=== PATIENT | female | born 1990 | race Hispanic/Latino ===

== ENCOUNTER 2021-08-29 18:05 | Day surgery (SDC) | payer MEDICAID ==
[2021-08-29] MEDS ORDERED: hydrALAZINE 20 MG/ML VIAL SLOW IVP PRN (18:37)
[2021-08-29] MEDS ORDERED: Betamet Acet/Betamet Na Ph 30 MG/5 ML VIAL IM SCH (18:45)
== END 2021-08-29 20:29 | disposition home or self-care (01) ==
LOC: CSHLD/OP 18:05
PROVIDERS: ATTEND Family Medicine
DX: Z29.8 Encounter for other specified prophylactic measures (principal); O36.5930 Maternal care for other known or suspected poor fetal growth, third trimester, not applicable or unspecified; Z3A.33 33 weeks gestation of pregnancy
CPT/HCPCS: 96372; 99281; J0702

== ENCOUNTER 2021-08-30 19:29 | Day surgery (SDC) | payer MEDICAID, SELFPAY ==
[2021-08-30] MEDS ORDERED: hydrALAZINE 20 MG/ML VIAL SLOW IVP PRN (19:36)
[2021-08-30] MEDS ORDERED: Betamet Acet/Betamet Na Ph 30 MG/5 ML VIAL ONE (19:44)
[2021-08-30] MEDS ORDERED: Betamet Acet/Betamet Na Ph 30 MG/5 ML VIAL IM SCH (19:45)
== END 2021-08-30 19:56 | disposition home or self-care (01) ==
LOC: CSHLD/OP 19:29
PROVIDERS: ATTEND Family Medicine
DX: Z29.8 Encounter for other specified prophylactic measures (principal); Z3A.33 33 weeks gestation of pregnancy
CPT/HCPCS: J0702

== ENCOUNTER 2021-09-20 14:46 | Outpatient (CLI) | payer SELFPAY | END 2021-09-20 14:47 | disposition home or self-care (01) | LOC: CSHLAB 14:46 | PROVIDERS: ATTEND Family Medicine | DX: Z20.822 Contact with and (suspected) exposure to COVID-19 (principal) | CPT/HCPCS: 87811 ==

== ENCOUNTER 2021-09-23 06:05 | Inpatient (IN) | payer MEDICAID, OTHER, SELFPAY ==
[2021-09-23] MEDS ORDERED: Lidocaine 1% (PF) 30 ML VIAL SC PRN (07:05)
[2021-09-23] MEDS ORDERED: Butorphanol Tartrate 1 MG/ML VIAL SLOW IVP PRN (07:05)
[2021-09-23] MEDS ORDERED: hydrALAZINE 20 MG/ML VIAL SLOW IVP PRN (07:05)
[2021-09-23] MEDS ORDERED: Promethazine HCl 25 MG/ML VIAL IM PRN ×2 (07:05→21:00)
[2021-09-23] MEDS ORDERED: Misoprostol 200 MCG TAB PR PRN (07:05)
[2021-09-23] MEDS ORDERED: Carboprost 250 MCG/ML AMP IM PRN (07:05)
[2021-09-23] MEDS ORDERED: Methylergonovine 0.2 MG/ML VIAL IM PRN (07:05)
[2021-09-23] MEDS ORDERED: Ibuprofen 800 MG TAB PO PRN (07:05)
[2021-09-23] MEDS ORDERED: Acetaminophen 500 MG TAB PO PRN (07:05)
[2021-09-23] MEDS ORDERED: Ondansetron PF 4 MG/2 ML Vial IVP PRN ×2 (07:05→21:00)
[2021-09-23] MEDS ORDERED: NS w/ Oxytocin 30 units 500 ML IV SCH ×2 (07:15)
[2021-09-23] MEDS ORDERED: Penicillin G Potassium 5 MILL.UNITS in Sodium Chloride 0.9% 100 ML IVPB SCH (07:15)
[2021-09-23] MEDS ORDERED: Bupivacaine/Epinephrine 0.25% 30 ML VIAL ONE (08:00)
[2021-09-23] MEDS: Lactated Ringer's 1,000 ML IV SCH ×2 (08:30→16:13)
[2021-09-23 08:58] LABS: Hemoglobin 12.2 g/dL (12.0-15.5); Mean Corpuscular HGB CONC 34.6 g/dL (32.0-36.0); Mean Corpuscular Hemoglobin 30.3 pg (27.0-33.0); Mean Corpuscular Volume 87.8 fl (81.6-98.3); Mean Platelet Volume 11.2 fl (7.4-10.4); Platelet Count 190 10x3/uL (150-450); RBC Distribution Width 13.2 % (11.5-14.5); Red Blood Cell (RBC) Count 4.02 10x6/uL (3.90-5.03); White Blood Cell (WBC) Count 9.2 10x3/uL (3.5-10.5)
[2021-09-23 09:32] VITALS: BMI 26.0
[2021-09-23] MEDS: Misoprostol 100 MCG TAB VAG SCH (10:19)
[2021-09-23 11:28] LABS: Hep B Surf Ag Non-Reactive S/CO (NonReactive); Syphilis Antibody Nonreactive (Nonreactive); Syphilis Antibody Index 0.08 S/CO (<1.00 Non-Reactive)
[2021-09-23 11:51] LABS: HBSAg Index 0.18 S/CO (0-0.99)
[2021-09-23] MEDS: Penicillin G 2.5 MILL.units 2.5 MILL.UNITS in Premix Bag 1 BAG IVPB SCH ×3 (12:09→20:45)
[2021-09-23] MEDS ORDERED: Fentanyl 2 mcg/Bup 0.1% Cadd 100 ML ONE (20:31)
[2021-09-23] MEDS ORDERED: Lactated Ringer's 500 ML IV PRN (21:00)
[2021-09-23] MEDS ORDERED: Communication Order-Pharmacy FS SCH (21:00)
[2021-09-23] MEDS ORDERED: Naloxone HCl 0.4 mg/ml Vial IVP PRN ×2 (21:00)
[2021-09-23] MEDS ORDERED: Moisturizing Cream (Eucerin) 113 GM JAR TOP PRN (21:00)
[2021-09-23] MEDS ORDERED: Acetaminophen 325 MG TAB PO PRN (21:00)
[2021-09-23] MEDS ORDERED: diphenhydrAMINE 50 MG/ML VIAL IVP PRN (21:00)
[2021-09-23] MEDS ORDERED: ePHEDrine Sulfate 50 MG/10 ML VIAL SLOW IVP PRN (21:00)
[2021-09-23] MEDS ORDERED: Fentanyl 2 mcg/Bupivacaine 0.1% Cassette 100 ML EPIDURAL SCH (21:00)
[2021-09-24] MEDS: Penicillin G 2.5 MILL.units 2.5 MILL.UNITS in Premix Bag 1 BAG IVPB SCH ×2 (00:59→05:47)
[2021-09-24] MEDS ORDERED: Milk Of Magnesia 30 ML UDCUP PO PRN (02:23)
[2021-09-24] MEDS ORDERED: Promethazine HCl 25 MG/ML VIAL IM PRN (02:23)
[2021-09-24] MEDS ORDERED: hydrALAZINE 20 MG/ML VIAL SLOW IVP PRN (02:23)
[2021-09-24] MEDS ORDERED: Methylergonovine 0.2 MG/ML VIAL IM PRN (02:23)
[2021-09-24] MEDS ORDERED: Ondansetron PF 4 MG/2 ML Vial IVP PRN (02:23)
[2021-09-24] MEDS ORDERED: diphenhydrAMINE 25 MG CAP PO PRN (02:23)
[2021-09-24] MEDS ORDERED: Bisacodyl 10 MG SUPP PR PRN (02:23)
[2021-09-24] MEDS ORDERED: NS w/ Oxytocin 30 units 500 ML IV SCH (02:30)
[2021-09-24] MEDS: Misoprostol 100 MCG TAB VAG SCH ×2 (05:46→05:47)
[2021-09-24] MEDS: Lactated Ringer's 1,000 ML IV SCH (05:47)
[2021-09-24] MEDS: Ibuprofen 800 MG TAB PO SCH ×3 (06:36→22:06)
[2021-09-24] MEDS: Ferrous Sulfate 325 MG TAB PO SCH ×2 (08:37→17:17)
[2021-09-24] MEDS: Docusate 100 MG CAP PO SCH ×2 (08:59→22:06)
[2021-09-24] MEDS: Prenatal Vitamin 1 TAB PO SCH (08:59)
[2021-09-24 18:04] LABS: Hemoglobin 11.2 g/dL (12.0-15.5)
[2021-09-25] MEDS: Ibuprofen 800 MG TAB PO SCH ×2 (05:25→13:58)
[2021-09-25 07:19] VITALS: BP 108/57; TEMP 97.9
[2021-09-25] MEDS: Docusate 100 MG CAP PO SCH (07:44)
[2021-09-25] MEDS: Ferrous Sulfate 325 MG TAB PO SCH ×2 (07:44→14:04)
[2021-09-25] MEDS: Prenatal Vitamin 1 TAB PO SCH (07:44)
== END 2021-09-25 14:35 | disposition home or self-care (01) | DRG 806 ==
LOC: CSHLD 06:05 → CSHPP 09-24 04:39
PROVIDERS: ADMIT Emergency Medicine; ATTEND Emergency Medicine
PROC: 3E0P7VZ Introduction of Hormone into Female Reproductive, Via Natural or Artificial Opening (ICD-10-PCS; 2021-09-23)
PROC: 10E0XZZ Delivery of Products of Conception, External Approach (ICD-10-PCS; principal; 2021-09-24)
PROC: 0KQM0ZZ Repair Perineum Muscle, Open Approach (ICD-10-PCS; 2021-09-24)
PROC: 10907ZC Drainage of Amniotic Fluid, Therapeutic from Products of Conception, Via Natural or Artificial Opening (ICD-10-PCS; 2021-09-24)
DX: O36.5930 Maternal care for other known or suspected poor fetal growth, third trimester, not applicable or unspecified (principal); O72.1 Other immediate postpartum hemorrhage; Z37.0 Single live birth; Z3A.37 37 weeks gestation of pregnancy; O70.1 Second degree perineal laceration during delivery; Z87.891 Personal history of nicotine dependence; Z86.16 Personal history of COVID-19; O99.824 Streptococcus B carrier state complicating childbirth; Z79.899 Other long term (current) drug therapy
CPT/HCPCS: 36415; 51702; 85014; 85018; 85027; 86780; 86850; 86900; 86901; 87340; 88307; J2540; J2590; J3490; J7120